=== PATIENT | male | born 1985 | race Caucasian/White ===

== ENCOUNTER 2016-11-04 14:03 | Emergency (ER) | payer BC ==
[2016-11-04 14:48] VITALS: BP 118/66
--- NOTE | 2016-11-04 15:41 | ERNOTE ---
ENT HPI Date of Service: 11/04/16 Time Seen by Provider: 11/04/16 15:24 Source: patient Exam Limitations: no limitations - Immun/Allergies/Home Medications Immunizations: IMMUNIZATION HX History of Influenza Vaccine No Hx Pneumococcal Vaccination No Allergies/Adverse Reactions: Allergies Allergy/AdvReac Type Severity Reaction Status Date / Time No Known Allergies Allergy Verified 11/04/16 14:49 Home Medications: HOME MEDICATIONS Gentamicin Sulfate [Gentacidin 0.3% Ophth Ointment] 1 appl RIGHTEYE TID #1 bottle 11/04/16 [Last Taken Unknown] Polymyxin B Sulf/Trimethoprim [Polytrim Ophthalmic Solution] 1 drop EACHEYE Q3H 11/04/16 [Last Taken Unknown] - History of Present Illness Narrative: Pt. comes in with c/o R eye redness, pain, and drainage. Pt. denies any vision changes or fever. Pt. states that he saw his primary three days ago when he had onset of symptoms and was placed on eye drops. Pt. states that this eyes have not improved nor has he followed up with an opthamologist. Review of Systems - Review of Systems Constitutional: Present: no symptoms reported. Absent: recent illness, fever, chills, malaise EYE: Present: eye pain, eye discharge, tearing. Absent: blurred vision, double vision, vision changes ENT: Present: no symptoms reported Respiratory: Present: no symptoms reported. Absent: shortness of breath, cough , wheezing Cardiology: Present: no symptoms reported. Absent: chest pain, palpitations, edema Gastrointestinal/Abdominal: Present: no symptoms reported. Absent: nausea, vomiting, diarrhea Musculoskeletal: Present: no symptoms reported. Absent: back pain, neck pain, joint pain Skin: Present: no symptoms reported Neurological: Present: no symptoms reported. Absent: headache, dizziness/light- headedness, weakness, numbness All Other Systems: All systems neg except as marked - Patient's Past Medical History Patient History - Medical: Anxiety Patient History - Cardiac/Respiratory: No pertinent hx Patient History - Cancer: No Hx of Cancer Patient History - Surgical Procedures: Other - Family History Mother Family History - Medical: No pertinent hx Father Family History - Medical: No pertinent hx - Social History Living Situations: significant other Smoking Status: Current every day smoker Alcohol Use: occasionally Drug Use: none Physical Exam - Physical Exam General Appearance: Present: wd/wn, alert, no apparent distress Eye Exam: Normal inspection: left, PERRL: bilateral, EOMI: bilateral, Sclera injection: right, Eye drainage: right, Eyelid inflammation: right Ears, Nose, Throat: Present: normal ENT inspection, hearing grossly normal, normal pharynx Neck: Present: normal inspection, nontender. Absent: lymphadenopathy (R), lymphadenopathy (L) Respiratory: Present: no respiratory distress, normal breath sounds, no accessory muscle use, chest nontender, lungs clear Cardiovascular/Chest: Present: regular rate, rhythm, no murmur, normal peripheral pulses Back Exam: Present: normal inspection Extremity Exam: Present: normal inspection Neurological Exam: Present: alert, oriented, normal mood/affect, no motor/ sensory deficits, guide changer II-XII nml as tested, normal cerebellar test Skin Exam: Present: normal color, warm/dry. Absent: pallor, skin rash ED Progress - Vital Signs Patient's Vital Signs:: I have reviewed the patient's vital signs. Vital Signs: Vital Signs 11/04/16 14:45 Temperature 36.7 C Pulse Rate 80 Respiratory 16 Rate Blood Pressure 118/66 O2 Sat by Pulse 98 Oximetry - Progress/Reassessment Chief Complaint: Eye Injury/Trauma Departure Clinical Impression: Blepharoconjunctivitis of right eye Qualifiers: Blepharoconjunctivitis type: unspecified Qualified Code(s): H10.501 - Unspecified blepharoconjunctivitis, right eye - Departure Disposition: Home self-care Condition: Good Instructions: Bacterial Conjunctivitis, [id number], Blepharitis, [id number] Additional Instructions: Please follow up with Doctor gonzalez in 1-2 days Referrals: Cynthia Barriga DO [Primary Care Provider] - Ke Gonzalez MD [Staff Physician] - Prescriptions: Gentamicin Sulfate [Gentacidin 0.3% Ophth Ointment] 1 appl RIGHTEYE TID #1 bottle
== END 2016-11-04 15:54 | disposition home or self-care (01) ==
LOC: ER 14:03
DX: H10.501 Unspecified blepharoconjunctivitis, right eye (principal); F17.210 Nicotine dependence, cigarettes, uncomplicated